=== PATIENT | male | born 1940 | race Caucasian/White ===

== ENCOUNTER 2020-03-31 11:16 | Inpatient (IN) | payer MEDICARE, OTHER ==
[~2020-03-31] VITALS: Ht 185.4 cm; Wt 83.9 kg
[~2020-03-31 11:16] MED LIST: ALDACTONE 25MG25 MG PO; AMMONIUM LACTA140 GM TP; BUMEX 1MG TABLET1 MG PO; CORDARONE 200M200 MG PO; COZAAR100 MG PO; ECOTRIN81 MG PO; ELIQUIS 2.5 MG2.5 MG PO; ELIQUIS 5 MG TAB5 MG PO; ELIQUIS5 MG PO; ENTRESTO 24 MG1 EACH PO; GLUCOPHAGE1000 MG PO; GLUCOTROL XL 22.5 MG PO; HYDROCHLOROTHIA25 MG PO; IMDUR ER TAB 6060 MG PO; LASIX 40 MG TAB40 MG PO; LEVAQUIN500 MG PO; LIPITOR TAB 2020 MG PO; LOPRESSOR 25 MG25 MG PO; LOPRESSOR50 MG PO; NITROSTAT0.4 MG SL; OMEPRAZOLE40 MG PO; SENNA LAX8.6 MG PO; TYLENOL W/CODEIN1 E1 PO; TYLENOL WITH C1 EACH PO; VITAMIN D35000 UNIT PO; ZAROXOLYN/DIULO5 MG PO
[2020-03-31 12:40] LABS: HEMOGLOBIN 12.7 gm/dl (14.0-17.5); RED BLOOD COUNT 4.96 M/UL (4.20-5.50); WHITE BLOOD COUNT 9.2 K/UL (4.5-11.0)
[2020-03-31 13:05] LABS: BUN/CREATININE RATIO 18 (0-10)
[2020-04-01 05:19] LABS: WHITE BLOOD COUNT 8.3 K/UL (4.5-11.0)
[2020-04-01 05:20] LABS: RED BLOOD COUNT 4.29 M/UL (4.20-5.50)
[2020-04-02 04:16] LABS: HEMOGLOBIN 10.9 gm/dl (14.0-17.5); RED BLOOD COUNT 4.15 M/UL (4.20-5.50); WHITE BLOOD COUNT 7.3 K/UL (4.5-11.0)
[2020-04-03 06:27] LABS: HEMOGLOBIN 11.4 gm/dl (14.0-17.5); RED BLOOD COUNT 4.4 M/UL (4.20-5.50); WHITE BLOOD COUNT 8.3 K/UL (4.5-11.0)
[2020-04-04 04:30] LABS: HEMOGLOBIN 11.2 gm/dl (14.0-17.5); RED BLOOD COUNT 4.31 M/UL (4.20-5.50); WHITE BLOOD COUNT 7.6 K/UL (4.5-11.0)
[2020-04-04] MEDS ORDERED: TYLENOL W/CODEIN1 E2 PO (09:24)
== END 2020-04-04 11:31 | disposition home or self-care (01) | DRG 291 ==
LOC: ER1 11:16 → CDU 18:19 → MED SURG 4 18:19
PROVIDERS: Physician Assistant; ADMIT Family Medicine
PROC: B24BZZZ Ultrasonography of Heart with Aorta (ICD-10-PCS; principal; 2020-04-01)
DX: I13.0 Hypertensive heart and chronic kidney disease with heart failure and stage 1 through stage 4 chronic kidney disease, or unspecified chronic kidney disease (principal); I50.23 Acute on chronic systolic (congestive) heart failure; J18.9 Pneumonia, unspecified organism; I48.20 Chronic atrial fibrillation, unspecified; N18.4 Chronic kidney disease, stage 4 (severe); Z20.822 Contact with and (suspected) exposure to COVID-19; E11.22 Type 2 diabetes mellitus with diabetic chronic kidney disease; I25.10 Atherosclerotic heart disease of native coronary artery without angina pectoris; I25.5 Ischemic cardiomyopathy; K59.00 Constipation, unspecified; K80.20 Calculus of gallbladder without cholecystitis without obstruction; M19.90 Unspecified osteoarthritis, unspecified site; E78.5 Hyperlipidemia, unspecified; H91.90 Unspecified hearing loss, unspecified ear; R09.02 Hypoxemia; R33.9 Retention of urine, unspecified; Z79.01 Long term (current) use of anticoagulants; Z79.84 Long term (current) use of oral hypoglycemic drugs; Z79.82 Long term (current) use of aspirin; Z79.899 Other long term (current) drug therapy; Z95.810 Presence of automatic (implantable) cardiac defibrillator; Z95.1 Presence of aortocoronary bypass graft
CPT/HCPCS: ECHO; 36415; 71045; 71046; 76705; 80048; 80053; 81001; 82436; 82550; 82553; 82962; 83540; 83550; 83605; 83874; 83880; 84133; 84300; 84484; 85025; 85027; 85610; 87086; 93005; 93306; 96365; 96367; 96375; 96376; 99285; J0696; J1940; J2270; J2405; U0002